=== PATIENT | female | born 1940 | race Caucasian/White ===

== ENCOUNTER 2019-10-20 10:33 | Outpatient (CLI) | payer MEDICARE, BC ==
[2019-10-20] MEDS ORDERED: Iopamidol-370 76% 500 ML 1 ML ONE (11:01)
--- NOTE | 2019-10-20 11:58 | CT ---
EXAM: CT chest, abdomen, and pelvis with IV contrast: HISTORY: Intestinal disease. Patient had recent colonoscopy demonstrating a colonic mass. History of prior hys terectomy. COMPARISON: None FINDINGS: CT THORAX: Lungs: Linear area of scarring is seen in the left upper lobe. There is minimal scar versus atelectas is present at each lung base. A tiny less than 4 mm pleural-based nodular density is seen along the minor fissure in the right middle lobe. No additional discrete pulmonary nodule or mass is seen. Pleura: No pleural effusion. Lymph nodes: No lymphadenopathy. Mediastinum: Large hiatal hernia is present with majority of the stomach above the level of the hemid iaphragms. Vascular calcifications are seen in the thoracic aorta. A 9 mm x 4 mm hypodense nodule is seen in the left lobe of the thyroid gland. Nonemergent thyroid ultrasound is recommended. Chest wall: No abnormalities CT ABDOMEN AND PELVIS: Liver: Within normal limits. Gallbladder: Within normal limits. \ Pancreas: Within normal limits. Spleen: Within normal limits. Adrenal glands: Within normal limits. Kidneys: A 4 mm nonobstructing calculus is present midportion right kidney. There are probable left r enal parapelvic cysts present. Kidneys otherwise have a normal CT appearance bilaterally. Urinary Bladder: Incompletely distended but normal in appearance. Reproductive organs: Evidence of hysterectomy Bowel: There is a large mass involving the hepatic flexure of the colon. This mass measures 11.6 cm x 6.4 cm on axial imaging. This mass does extend outside of the confines of the colon wall with a large masslike component extending anteriorly to the anterior abdominal wall. The portion of the mass which extends anteriorly exerts mass effect on the anterior abdominal wall. Involvement of the anterior abdominal wall could not be entirely excluded. No bowel obstruction is seen at this time. Mu ltiple colonic diverticula are seen involving the sigmoid colon. Adenopathy:Few mildly prominent lymph nodes are seen posterior to the mid transverse colon, this is a djacent to the region of the colonic mass. Peritoneum: No free fluid or fluid collection is seen. No free intraperitoneal gas is identified. Abdominal wall: No abnormalities seen. Osseous structures: Degenerative changes are seen in spine with S-shaped curvature of thoracolumbar s pine. Postoperative changes left hip are seen. No suspicious lytic or sclerotic osseous lesions are identified. A large bone island involves the right iliac bone posteriorly. IMPRESSION: 1. Large colonic mass involving the hepatic flexure of the colon. The mass is outside of the confines of the bowel wall with nodular component extending anteriorly and resulting in mass effect involving the right anterolateral abdominal wall. Invasion into the abdominal wall could not be entir kim excluded. 2. Mildly prominent lymph nodes just posterior to the mid transverse colon which is immediately adjac ent to the colonic mass. 3. Colonic diverticulosis. 4. Large hiatal hernia. 5. Nonobstructing right renal calculus.
== END 2019-10-20 10:34 | disposition home or self-care (01) ==
LOC: BICCT 10:33
PROVIDERS: ATTEND Internal Medicine Gastroenterology
DX: K63.9 Disease of intestine, unspecified (principal); K57.30 Diverticulosis of large intestine without perforation or abscess without bleeding; K44.9 Diaphragmatic hernia without obstruction or gangrene; N20.0 Calculus of kidney
CPT/HCPCS: 71260; 74177; Q9967

== ENCOUNTER 2020-12-26 10:04 | Outpatient (CLI) | payer MEDICARE, BC ==
[2020-12-26 12:41] LABS: #Eosinphils 0.1 10x3/uL (0.0-0.5); #Monocytes 0.5 10x3/uL (0.0-1.1); #Neutrophils 4.6 10x3/uL (1.5-8.4); %Basophils 0.3 % (0.0-2.0); %Eosinophils 1.2 % (0.0-6.0); %Monocytes 7.6 % (0.0-10.0); %Neutrophils 71.4 % (40.0-75.0); Hemoglobin 13.8 g/dL (12.0-15.5); Mean Corpuscular Volume 90.5 fl (81.6-98.3); Mean Platelet Volume 11.7 fl (7.4-10.4); Platelet Count 206 10x3/uL (150-450); RBC Distribution Width 14.1 % (11.5-14.5); Red Blood Cell (RBC) Count 4.76 10x6/uL (3.90-5.03); White Blood Cell (WBC) Count 6.4 10x3/uL (3.5-10.5)
[2020-12-26 12:50] LABS: Anion Gap 14 mmol/L (10-20); BUN (Urea Nitrogen) 21 mg/dL (9.8-20.1); Calc. Creatinine Clearance 0 mL/min (70-130); Calcium 10.5 mg/dL (7.8-10.44); Carbon Dioxide 27 mmol/L (23-31); Chloride 106 mmol/L (98-107); Glucose 75 mg/dL (83-110); Potassium 5.2 mmol/L (3.5-5.1); Sodium 142 mmol/L (136-145)
[2020-12-26 19:05] LABS: SARS-CoV-2 PCR by NAA Not Detected (NotDetected)
== END 2020-12-26 10:05 | disposition home or self-care (01) ==
LOC: LABBT 10:04
PROVIDERS: ATTEND Specialist
DX: Z01.818 Encounter for other preprocedural examination (principal); C18.3 Malignant neoplasm of hepatic flexure; Z20.822 Contact with and (suspected) exposure to COVID-19
CPT/HCPCS: 71046; 80048; 85025; 93005; U0003; U0005; 93010

== ENCOUNTER 2020-12-29 07:28 | Day surgery (SDC) | payer MEDICARE, BC ==
[2020-12-28 12:23] VITALS: BMI 24.0
[2020-12-29] MEDS ORDERED: Ketorolac Tromethamine 30 MG/ML VIAL ONE (07:44)
[2020-12-29] MEDS ORDERED: Acetaminophen 500 MG TAB ONE ×2 (07:44→07:49)
[2020-12-29] MEDS ORDERED: ceFAZolin 2 GM/DEX 5% 100 ML BAG ONE (07:44)
[2020-12-29] MEDS ORDERED: Lidocaine 1% w/Epinephrine 1:100K 20 ML VIAL ONE ×2 (08:08→09:56)
[2020-12-29] MEDS ORDERED: Bupivacaine 0.25% HCL 30 ML VIAL ONE (08:08)
[2020-12-29] MEDS ORDERED: Midazolam HCl 2 mg/2 ml Vial ONE (08:10)
[2020-12-29] MEDS ORDERED: Fentanyl 100 MCG/2 ML VIAL ONE ×3 (08:10→11:29)
[2020-12-29] MEDS ORDERED: PHENYLEPHRINE-NS 100 MCG/ML 10 ML SYRINGE ONE (09:27)
[2020-12-29] MEDS ORDERED: Dexamethasone 20 MG/5 ML VIAL ONE (09:27)
[2020-12-29] MEDS ORDERED: Rocuronium Bromide 10 MG/ML (10ML VIAL) ONE (09:27)
[2020-12-29] MEDS ORDERED: ePHEDrine 50 MG/ML VIAL ONE (09:27)
[2020-12-29] MEDS ORDERED: Ondansetron PF 4 MG/2 ML Vial ONE (09:27)
[2020-12-29] MEDS ORDERED: Bupivacaine HCl 0.5%/Epinephrine 1:200,000/PF 30 ml Vial ONE (09:27)
[2020-12-29] MEDS ORDERED: PROPOFOL 200 MG/20 ML VIAL ONE (09:27)
[2020-12-29] MEDS ORDERED: Lidocaine 1% PF 5 ML VIAL ONE (09:27)
[2020-12-29] MEDS ORDERED: Glycopyrrolate 0.2 MG/ML 5 ML SYRINGE ONE (09:27)
[2020-12-29] MEDS ORDERED: HYDROcodone/Acetaminophen 5/325 mg Tablet ONE (13:17)
== END 2020-12-29 14:00 | disposition home or self-care (01) ==
LOC: SDC 07:28
PROVIDERS: ATTEND Specialist
PROC: 0WUF4JZ Supplement Abdominal Wall with Synthetic Substitute, Percutaneous Endoscopic Approach (ICD-10-PCS; principal; 2020-12-29)
DX: K43.2 Incisional hernia without obstruction or gangrene (principal); C18.3 Malignant neoplasm of hepatic flexure; D64.9 Anemia, unspecified; I10 Essential (primary) hypertension; Z79.899 Other long term (current) drug therapy
CPT/HCPCS: 49654; C1781; J1100; J1885; J2250; J2405; J2704; J3010; J3490; S0020